=== PATIENT | male | born 2000 | race Caucasian/White ===

== ENCOUNTER 2020-05-14 17:46 | Emergency (ER) | payer BC ==
[~2020-05-14] VITALS: Ht 180.3 cm; Wt 70.3 kg
[2020-05-14 18:46] LABS: BASO % 0.5 % (0.0-1.0); EOS # 0.1 10*3/uL (0.0-0.4); EOS % 1.4 % (1.0-4.0); HEMATOCRIT 44.7 % (42.0-52.0); LYMPH # 2.1 10*3/uL (1.3-4.4); LYMPH % 26.3 % (27.0-41.0); MEAN CELL VOLUME 88.3 fl (80.0-94.0); MEAN CORPUSCULAR HGB 31.2 pg (27.0-31.0); MEAN CORPUSCULAR HGB CONC 35.3 g/dl (33.0-37.0); MEAN PLATELET VOLUME 9.6 fl (9.6-12.3); MONO # 0.6 10*3/uL (0.1-1.0); MONO % 7.5 % (3.0-9.0); NEUT # 5.2 10*3/uL (2.3-7.9); NEUT % 63.9 % (47.0-73.0); PLATELET COUNT AUTOMATED 251 10*3/uL (130-400); RED BLOOD COUNT 5.06 10*6/uL (4.50-5.90); RED CELL DISTRI WIDTH 12.1 % (0-14.5); WHITE BLOOD COUNT 8.1 10*3/uL (4.8-10.8)
[2020-05-14 19:03] LABS: ALKALINE PHOSPHATASE 92 U/L (45-117); BUN 14 mg/dl (7-24); CHLORIDE 106 mmol/L (98-107); CREATININE 1.12 mg/dL (0.70-1.30); POTASSIUM 3.4 mmol/L (3.5-5.1); SGOT/AST 14 IU/L (3-35); SGPT/ALT 35 U/L (12-78); SODIUM 140 mmol/L (136-145); TOTAL PROTEIN 8.2 gm/dL (6.4-8.2)
[2020-05-14 19:07] LABS: TROPONIN I < 0.015 ng/ml (<0.045)
== END 2020-05-14 22:13 | disposition home or self-care (01) ==
LOC: ED 17:46
PROVIDERS: Emergency Medicine
DX: I31.9 Disease of pericardium, unspecified (principal)

== ENCOUNTER 2024-05-07 18:23 | Emergency (ER) | payer OTHER ==
[~2024-05-07] VITALS: Ht 182.8 cm; Wt 85.7 kg
[2024-05-07] MEDS ORDERED: Amoxicillin/Clavulanate Pota 875 MG TAB PO ONE (18:35)
[2024-05-07] MEDS ORDERED: Bacitracin Zinc 14 GM TUBE T ONE (18:35)
[2024-05-07] MEDS ORDERED: AMOX-CLAV 875-1 EACH PO (18:36)
== END 2024-05-07 18:44 | disposition home or self-care (01) ==
LOC: ED 18:23
DX: J02.0 Streptococcal pharyngitis (principal); L03.011 Cellulitis of right finger

== ENCOUNTER 2025-08-22 01:34 | Emergency (ER) | payer OTHER ==
[~2025-08-22] VITALS: Ht 182.8 cm; Wt 88.5 kg
[~2025-08-22 01:34] MED LIST: AMOX-CLAV 875-1 EACH PO
[2025-08-22] MEDS ORDERED: Cyclobenzaprine Hydrochlorid 10 MG TAB PO ONE (02:20)
[2025-08-22] MEDS ORDERED: Dexamethasone Sodium Phospha 20 MG/5 ML VIAL IM ONE (02:20)
[2025-08-22] MEDS ORDERED: CYCLOBENZAPRINE5 M3 PO (03:35)
[2025-08-22] MEDS ORDERED: MELOXICAM15 MG PO (03:35)
[2025-08-22] MEDS ORDERED: LIDOCAINE PAIN1 EACH T (03:35)
[2025-08-22] MEDS ORDERED: MEDROL DOSEPAK4 MG PO (03:35)
== END 2025-08-22 04:08 | disposition home or self-care (01) ==
LOC: ED 01:34
DX: M62.830 Muscle spasm of back (principal); Z91.018 Allergy to other foods